=== PATIENT | male | born 1960 | race Caucasian/White ===

== ENCOUNTER 2024-02-01 07:35 | Emergency (ER) | payer OTHER ==
[2024-02-01] MEDS: Morphine 2 MG/ML SYRINGE IVPUSH ONE ×2 (08:41→09:35)
[2024-02-01] MEDS: Ondansetron 4 MG/2 ML SDV IVPUSH ONE (08:41)
[2024-02-01] MEDS: Sodium Chloride 0.9% 10 ML Syringe FLUSH PRN (08:45)
[2024-02-01 08:53] LABS: BASOPHILS ABSOLUTE AUTO 0.05 K/uL (0.00-0.20); BASOPHILS PERCENT AUTO 0.6 % (0.0-2.0); EOSINOPHILS ABSOLUTE AUTO 0.17 K/uL (0.00-0.50); EOSINOPHILS PERCENT AUTO 1.9 % (0.0-5.0); HEMATOCRIT 50.9 % (39.0-49.0); HEMOGLOBIN 17.3 g/dL (13.1-16.8); LYMPHOCYTES ABSOLUTE AUTO 1.23 K/uL (0.50-3.50); LYMPHOCYTES PERCENT AUTO 13.8 % (10.0-50.0); MEAN CORPUSCULAR HEMOGLOBIN 31.1 pg (28.2-33.3); MEAN CORPUSCULAR VOLUME 91.4 fL (84.0-98.0); MONOCYTES ABSOLUTE AUTO 0.62 K/uL (0.00-1.00); MONOCYTES PERCENT AUTO 6.9 % (2.0-14.0); NEUTROPHILS ABSOLUTE AUTO 6.86 K/uL (1.40-7.00); NEUTROPHILS PERCENT AUTO 76.8 % (45.0-80.0); PLATELET COUNT,PLT 198 K/uL (150-350); RED BLOOD CELL COUNT 5.57 M/uL (4.33-5.41); RED CELL DISTRIBUTION WIDTH 13.4 % (11.2-14.1); WHITE BLOOD CELL COUNT,WBC 8.9 K/uL (4.0-10.2)
[2024-02-01 09:12] LABS: ANION GAP 8.2 meq/L (7-15); BILIRUBIN TOTAL 0.7 mg/dL (0.2-1.0); CALCIUM 8.8 mg/dL (8.5-10.1); CARBON DIOXIDE,CO2 23.8 mmol/L (21.0-32.0); CREATININE 1.15 mg/dL (0.51-1.17); EST CRCL DRUG DOSING (CG) 71.84 mL/min; POTASSIUM,K 4.3 mmol/L (3.5-5.1); PROTEIN TOTAL,TP 7.2 g/dL (6.4-8.2)
[2024-02-01] MEDS: Iopamidol 612 MG/ML 100 ML Bottle IVPUSH ONE (09:25)
[2024-02-01] MEDS: Sodium Chloride 0.9% 1,000 ML IV ONE (09:36)
[2024-02-01] MEDS: diphenhydrAMINE 50 MG/ML SDV IVPUSH ONE (10:01)
[2024-02-01] MEDS: Tamsulosin 0.4 MG Cap.ER PO ONE (10:19)
[2024-02-01] MEDS: Ketorolac 30 MG/ML SDV IVPUSH ONE (11:02)
[2024-02-01 11:32] VITALS: BP 142/73; PULSE 92
== END 2024-02-01 11:23 | disposition home or self-care (01) ==
LOC: LL.ED 07:35
DX: N13.2 Hydronephrosis with renal and ureteral calculous obstruction (principal); Z91.041 Radiographic dye allergy status; Z79.899 Other long term (current) drug therapy
CPT/HCPCS: 36415; 74177; 80053; 83690; 85025; 96361; 96374; 96375; 96376; 99284-25; A9270-GY; J1200; J1885; J2270; J2405; J3490; J7030; Q9967